=== PATIENT | female | born 1995 | race Caucasian/White ===

== ENCOUNTER 2017-03-12 18:43 | Outpatient (CLI) | payer OTHER ==
[2017-03-12] MEDS ORDERED: HYDROXYZINE PAMOATE 50 MG CAPSULE ONE (19:53)
[2017-03-12 20:04] LABS: AMORPHOUS SEDIMENT,URINE TRACE /HPF; APPEARANCE,URINE SLIGHTLY-CLOUDY; BILIRUBIN,URINE NEGATIVE (NEGATIVE); GLUCOSE, URINE NEGATIVE (NEGATIVE); KETONES,URINE 20 mg/dL (NEGATIVE); LEUKOCYTE ESTERASE,URINE NEGATIVE (NEGATIVE); NITRITE,URINE NEGATIVE (NEGATIVE); PROTEIN,URINE NEGATIVE (NEGATIVE); URINE SPECIFIC GRAVITY 1.004; UROBILINOGEN,URINE NEGATIVE mg/dL (<2.0)
[2017-03-12 20:15] LABS: URINE BARBITURATES SCREEN NEGATIVE; URINE METHADONE SCREEN NEGATIVE; URINE OPIATES LOW NEGATIVE; URINE PHENCYCLIDINE SCREEN NEGATIVE
[2017-03-12] MEDS ORDERED: HYDROXYZINE PAMOATE 50 MG CAPSULE PO ONE (20:15)
--- NOTE | 2017-03-12 20:53 | RADIOLOGY REPORT (SQ) ---
EXAM DESCRIPTION: U/S OB LIMITED COMPLETED DATE/TIME: 03/12/2017 8:41 pm REASON FOR STUDY: cervical length for contractions COMPARISON: None. TECHNIQUE: Limited transabdominal and endovaginal grayscale ultrasound for evaluation of specific re quested obstetrical parameters. LIMITATIONS: None. FINDINGS: CERVICAL LENGTH: 4.0 cm. Closed. RUTH: Not measured. FHR: 141 beats per minute. PRESENTATION: Cephalic. OTHER: No other significant findings. IMPRESSION: LIMITED OBSTETRICAL ULTRASOUND WITH MEASURED PARAMETERS DELINEATED ABOVE. Trimester of : Third trimester - 28 weeks to delivery. TECHNICAL DOCUMENTATION: JOB ID: [id number] [employer]- All Rights Reserved
--- NOTE | 2017-03-12 21:07 | Non Stress Test Report ---
Non Stress Test Datetime Report Generated by CPN: 03/12/2017 21:06 DEMOGRAPHIC Test Number: 1 EGA NST: 33.0 INDICATION Indication for Study: Decreased Movement; Ordered by Provider MONITORING Monitor Explained: Monitor Explained; Test Explained; Patient Verbalized Understanding Time on Monitor: 03/12/2017 19:11 Time off Monitor: 03/12/2017 20:53 NST Duration: 102 NST INTERVENTIONS NST Interventions: PO Hydration; Reposition Patient Physician Notified NST: Randall BABY A: [id number] BABY A Movement : Present Contraction Frequency : 4 FHR Baseline : 140 Accelerations : 15X15 Decelerations : None Variability : Moderate 6-25bpm NST Review: Meets Criteria for Reactive NST NST Review and Verified By : ELIGIO MIMS Results: Reactive NST REPORT Report Trigger: Send Report
== END 2017-03-12 21:00 | disposition home or self-care (01) ==
LOC: LC 18:43
PROVIDERS: ATTEND Obstetrics & Gynecology
PROC: 4A1HXCZ Monitoring of Products of Conception, Cardiac Rate, External Approach (ICD-10-PCS; principal; 2017-03-12)
DX: O36.8130 Decreased fetal movements, third trimester, not applicable or unspecified (principal); Z3A.33 33 weeks gestation of pregnancy
CPT/HCPCS: 59025; 76815; 80307; 81001

== ENCOUNTER 2017-03-14 17:56 | Outpatient (CLI) | payer OTHER ==
[2017-03-14 18:47] LABS: APPEARANCE,URINE SLIGHTLY-CLOUDY; BILIRUBIN,URINE NEGATIVE (NEGATIVE); GLUCOSE, URINE NEGATIVE (NEGATIVE); KETONES,URINE 20 mg/dL (NEGATIVE); LEUKOCYTE ESTERASE,URINE TRACE (NEGATIVE); NITRITE,URINE NEGATIVE (NEGATIVE); PROTEIN,URINE NEGATIVE (NEGATIVE); URINE SPECIFIC GRAVITY 1.003; UROBILINOGEN,URINE NEGATIVE mg/dL (<2.0)
[2017-03-14 19:03] LABS: URINE BARBITURATES SCREEN NEGATIVE; URINE METHADONE SCREEN NEGATIVE; URINE OPIATES LOW NEGATIVE; URINE PHENCYCLIDINE SCREEN NEGATIVE
[2017-03-14] MEDS ORDERED: ONDANSETRON 4 MG TAB.RAPDIS PO ONE (19:27)
[2017-03-14] MEDS ORDERED: ONDANSETRON 4 MG TAB.RAPDIS ONE (19:30)
--- NOTE | 2017-03-14 19:35 | Non Stress Test Report ---
Non Stress Test Datetime Report Generated by CPN: 03/14/2017 19:35 DEMOGRAPHIC EGA NST: 33.2 INDICATION Indication for Study: Other Indication for Study (NST) Other: labor check MONITORING Monitor Explained: Monitor Explained; Test Explained; Patient Verbalized Understanding Time on Monitor: 03/14/2017 18:17 Time off Monitor: 03/14/2017 19:24 NST Duration: 67 NST INTERVENTIONS NST Interventions: PO Hydration; Reposition Patient Physician Notified NST: Dr Ventura BABY A: [id number] BABY A Movement : Present Contraction Frequency : 1-5 FHR Baseline : 150 Accelerations : 15X15 Decelerations : None Variability : Moderate 6-25bpm NST Review: Meets Criteria for Reactive NST NST Review and Verified By : Derick Pinon RN NST Results: Reactive NST REPORT Report Trigger: Send Report
== END 2017-03-14 19:31 | disposition home or self-care (01) ==
LOC: LC 17:56
PROVIDERS: ATTEND Obstetrics & Gynecology
PROC: 4A1HXCZ Monitoring of Products of Conception, Cardiac Rate, External Approach (ICD-10-PCS; principal; 2017-03-14)
DX: O47.03 False labor before 37 completed weeks of gestation, third trimester (principal); Z3A.33 33 weeks gestation of pregnancy
CPT/HCPCS: 59025; 81001; 80307; S0119

== ENCOUNTER 2017-04-21 18:40 | Outpatient (CLI) | payer OTHER ==
[2017-04-21 19:27] LABS: APPEARANCE,URINE SLIGHTLY-CLOUDY; BILIRUBIN,URINE NEGATIVE (NEGATIVE); GLUCOSE, URINE NEGATIVE (NEGATIVE); KETONES,URINE 20 mg/dL (NEGATIVE); LEUKOCYTE ESTERASE,URINE TRACE (NEGATIVE); NITRITE,URINE NEGATIVE (NEGATIVE); PROTEIN,URINE NEGATIVE (NEGATIVE); URINE SPECIFIC GRAVITY 1.012; UROBILINOGEN,URINE NEGATIVE mg/dL (<2.0)
[2017-04-21 19:50] LABS: URINE BARBITURATES SCREEN NEGATIVE; URINE METHADONE SCREEN NEGATIVE; URINE OPIATES LOW NEGATIVE; URINE PHENCYCLIDINE SCREEN NEGATIVE
--- NOTE | 2017-04-30 17:13 | Non Stress Test Report ---
Non Stress Test Datetime Report Generated by CPN: 04/30/2017 17:13 DEMOGRAPHIC EGA NST: 38.5 INDICATION Indication for Study: Ordered by Provider Indication for Study (NST) Other: LC URINE RESULTS Urine Protein, NST: Negative Urine Ketones - NST: Positive Urine Glucose - NST: Negative Urine Blood - NST: Negative MONITORING Monitor Explained: Monitor Explained; Test Explained; Patient Verbalized Understanding Time on Monitor: 04/21/2017 18:57 Time off Monitor: 04/21/2017 20:30 NST Duration: 93 NST INTERVENTIONS NST Interventions: PO Hydration; Reposition Patient Physician Notified NST: Dr. Ventura BABY A: [id number] BABY A Movement : Present Contraction Frequency : Irregular FHR Baseline : 145 Accelerations : 15X15 Decelerations : None Variability : Moderate 6-25bpm NST Review: Meets Criteria for Reactive NST NST Review and Verified By : Bright Mercado RN NST Results: Reactive NST REPORT Report Trigger: Send Report (Annotations: Data stored by N on behalf of user)
== END 2017-04-21 20:40 | disposition home or self-care (01) ==
LOC: LC 18:40
PROVIDERS: ATTEND Obstetrics & Gynecology
PROC: 4A1HXCZ Monitoring of Products of Conception, Cardiac Rate, External Approach (ICD-10-PCS; principal; 2017-04-21)
DX: O47.1 False labor at or after 37 completed weeks of gestation (principal); Z3A.38 38 weeks gestation of pregnancy
CPT/HCPCS: 59025; 80307; 81005

== ENCOUNTER 2017-04-30 18:17 | Inpatient (IN) | payer OTHER ==
[2017-04-30] MEDS ORDERED: RINGERS SOLUTION,LACTATED 300 ML IV ONE (18:26)
[2017-04-30] MEDS ORDERED: OXYTOCIN/NORMAL SALINE 1,000 ML IV PRN (18:26)
[2017-04-30] MEDS ORDERED: DINOPROSTONE 10 MG VAGINAL INSERT.SR PV PRN (18:26)
[2017-04-30 18:54] LABS: APPEARANCE,URINE SLIGHTLY-CLOUDY; BILIRUBIN,URINE NEGATIVE (NEGATIVE); GLUCOSE, URINE NEGATIVE (NEGATIVE); KETONES,URINE NEGATIVE (NEGATIVE); LEUKOCYTE ESTERASE,URINE NEGATIVE (NEGATIVE); NITRITE,URINE NEGATIVE (NEGATIVE); PROTEIN,URINE NEGATIVE (NEGATIVE); URINE SPECIFIC GRAVITY 1.005; UROBILINOGEN,URINE NEGATIVE mg/dL (<2.0)
[2017-04-30 19:04] LABS: ABSOLUTE EOSINOPHILS # (AUTO) 0.1 10^3/uL (0.0-0.6); ABSOLUTE LYMPHOCYTES (AUTO) 2.9 10^3/uL (0.5-4.7); ABSOLUTE MONOCYTES (AUTO) 0.9 10^3/uL (0.1-1.4); ABSOLUTE NEUT (AUTO) 7.2 10^3/uL (1.7-8.2); BASOPHILS % (AUTO) 0.2 % (0-2); EOSINOPHILS % (AUTO) 0.8 % (0-6); HEMATOCRIT 30.6 % (36.0-47.0); HEMOGLOBIN 10.4 g/dL (12.0-15.5); HGB HCT DIFFERENCE 0.6; LYMPHOCYTES % (AUTO) 25.9 % (13-45); MEAN CORPUSCULAR HEMOGLOBIN 28.5 pg (27.0-33.4); MEAN CORPUSCULAR HGB CONC 33.9 g/dL (32.0-36.0); MEAN CORPUSCULAR VOLUME 84 fl (80-97); MONOCYTES % (AUTO) 8.4 % (3-13); RED BLOOD COUNT 3.64 10^6/uL (3.72-5.28); RED CELL DISTRIBUTION WIDTH 12.9 % (11.5-14.0); SEGMENTED NEUTROPHILS % (AUTO) 64.7 % (42-78); WHITE BLOOD COUNT 11.1 10^3/uL (4.0-10.5)
[2017-04-30 19:15] LABS: URINE BARBITURATES SCREEN NEGATIVE; URINE METHADONE SCREEN NEGATIVE; URINE OPIATES LOW NEGATIVE; URINE PHENCYCLIDINE SCREEN NEGATIVE
[2017-04-30] MEDS ORDERED: DINOPROSTONE 10 MG VAGINAL INSERT.SR ONE (19:46)
[2017-04-30] MEDS: RINGERS SOLUTION,LACTATED 1,000 ML IV PRN (19:55)
[2017-04-30] MEDS ORDERED: MAG HYDROX/AL HYDROX/SIMETH SUSP 30 ML UDCUP ONE (22:13)
[2017-04-30] MEDS ORDERED: DIPHENHYDRAMINE HCL 50 MG CAPSULE PO ONE (22:30)
[2017-04-30] MEDS ORDERED: MISOPROSTOL 0.2 MG TABLET PV ONE (23:11)
[2017-04-30 23:16] LABS: AMNISURE (ROM) POSITIVE (NEGATIVE)
[2017-04-30] MEDS ORDERED: MISOPROSTOL 0.1 MG TABLET ONE (23:28)
[2017-04-30] MEDS ORDERED: DIPHENHYDRAMINE HCL 25 MG CAPSULE ONE (23:39)
[2017-05-01] MEDS ORDERED: NALBUPHINE HCL INJ 10 MG/1 ML AMPULE INJ ONE (00:36)
[2017-05-01] MEDS ORDERED: PROMETHAZINE HCL INJ 25 MG/1 ML VIAL IV ONE (00:36)
[2017-05-01] MEDS ORDERED: NALBUPHINE HCL INJ 10 MG/1 ML AMPULE ONE (00:43)
[2017-05-01] MEDS ORDERED: PROMETHAZINE HCL INJ 25 MG/1 ML VIAL ONE (00:43)
[2017-05-01] MEDS: RINGERS SOLUTION,LACTATED 1,000 ML IV PRN ×2 (03:08→03:45)
[2017-05-01] MEDS ORDERED: EPHEDRINE SULFATE INJ 50 MG/1 ML AMPULE ONE (03:21)
[2017-05-01] MEDS ORDERED: FENTANYL/BUPIVACAINE/NS/PF 200 MCG/100 ML RTUINJ EPI ONE (03:22)
[2017-05-01] MEDS ORDERED: BUPIVACAINE HCL 0.25 % INJ/PF (2.5 MG/1 ML) 30 ML VIAL ONE (03:22)
[2017-05-01] MEDS ORDERED: LIDOCAINE 1% INJ-PF (10 MG/ML) 30 ML SDV ONE (05:52)
[2017-05-01] MEDS ORDERED: MISOPROSTOL 0.2 MG TABLET ONE (05:52)
[2017-05-01] MEDS ORDERED: OXYTOCIN/NORMAL SALINE 20 UNIT/1,000 ML RTUINJ ONE (05:53)
[2017-05-01] MEDS ORDERED: DIBUCAINE 1% OINTMENT 28 GM TP PRN (06:30)
[2017-05-01] MEDS ORDERED: OXYTOCIN/NORMAL SALINE 1,000 ML IV PRN (06:30)
[2017-05-01] MEDS ORDERED: DIPH/PERTUSS(ACELL)/TETANUS VAC/PF 0.5 ML SYR (>=10YO) IM PRN (06:30)
[2017-05-01] MEDS ORDERED: MEASLES,MUMPS&RUBELLA VACC/PF 0.5 ML VIAL SUBCUT PRN (06:30)
[2017-05-01] MEDS ORDERED: BENZOCAINE/MENTHOL AEROSOL SPRAY 56 ML TOP PRN (06:30)
[2017-05-01] MEDS ORDERED: ACETAMINOPHEN WITH CODEINE #3 TABLET PO PRN ×2 (06:30)
[2017-05-01] MEDS ORDERED: ZOLPIDEM TARTRATE 5 MG TABLET PO PRN (06:30)
[2017-05-01] MEDS ORDERED: IBUPROFEN 800 MG TABLET ONE (06:55)
[2017-05-01] MEDS: IBUPROFEN 800 MG TABLET PO SCH ×2 (06:55→21:36)
[2017-05-01] MEDS ORDERED: AMPICILLIN SOD/SULBACTAM 3 GM VIAL IV SCH ×2 (07:15→12:00)
[2017-05-01] MEDS ORDERED: AMPICILLIN SOD/SULBACTAM 3 GM VIAL ONE (07:19)
--- NOTE | 2017-05-01 09:51 | Admission Physical ---
Datetime Report Generated by CPN: 05/01/2017 09:51 CURRENT ADMISSION Hx Assessment: The History has been Reviewed and is Current Chief Complaint: Scheduled Induction of Labor Chief Complaint Other: known dysrhythmia Admit Plan: Initiate Labor Induction Protocol ALLERGIES Medication Allergies: No Medication Allergies: No Known Allergies (04/21/2017) Medication Allergies: No Known Allergies (03/14/2017) Medication Allergies: No Known Allergies (03/12/2017) Latex: Latex Allergies OBSTETRICAL HISTORY EDC: 04/30/2017 00:00 : 1 Para: 0 Term: 0 : 0 SAB: 0 IAB: 0 Ectopic: 0 Livin Cesareans: 0 VBACs: 0 Multiple Births: 0 Gestational Diabetes: No Rh Sensitization: No Incompetent Cervix: No TARYN: No Infertility: No ART Treatment: No Uterine Anomaly: No IUGR: No Hx Previous C/S: No Macrosomia: No Hx Loss/Stillborn: No PIH: No Hx : No Placenta Previa/Abruption: No Depression/PP Depression: No PTL/PROM: No Post Hemorrhage: No Current Procedures: Ultrasound Obstetrical History Comments: G1: currrent SEE RECORDS Alcohol: No Marijuana : No Cocaine: No Other Illicit Drugs: No Cigarettes: Never Smoker. [id number] MEDICAL HISTORY Diabetes: No Blood Transfusion: No Pulmonary Disease (Asthma, TB): No Breast Disease: No Hypertension: No Precision Lathe Operator Surgery: Yes Heart Disease: No Hosp/Surgery: Yes Autoimmune Disorder: No Anesthetic Complications: No Kidney Disease: No Abnormal Pap Smear: No Neuro/Epilepsy: No Psychiatric Disorders: No Other Medical Diseases: No Hepatitis/Liver Disease: No Significant Family History: No Varicosities/Phlebitis: No Trauma/Violence : No Thyroid Dysfunction: No Medical History Comments: Stage 1 ovarian cancer Right ovary removed 2012 INFECTIOUS HISTORY Gonorrhea: No Genital Herpes: No Chlamydia: No Tuberculosis: No Syphilis: No Hepatitis: No HIV/AIDS Exposure: No Rash or Viral Illness: No HPV: No PHYSICAL EXAM General: Normal HEENT: Normal Neurologic: Normal Thyroid: Normal Heart: Normal Lungs: Normal Breast: Normal Back: Normal Abdomen: Normal Genitourinary Exam: Normal Extremities: Normal DTRs: Normal Pelvic Type: Adequate Physical Exam Comments: pt with srom of clear fluid after cervidil was placed and it washed out gbs neg efw 8 pounds 10 oz FETUS A EGA: 40.0 Monitoring: External US FHR Category: Category I Admit Comment: cytotec for cervical ripening then pitocin PLANS FOR LABOR AND DELIVERY Pain Management: Epidural Feeding Preference: Breast Benefit of Breast Feed Discussed: Yes Circumcision: Yes INFORMED CONSENT Signature: with User ID: [email or web address]
[2017-05-01] MEDS: PRENATAL VITAMIN W-O CA NO5/FE FUMARATE/FA CAPSULE PO SCH (10:22)
[2017-05-01] MEDS: DOCUSATE SODIUM 100 MG CAPSULE PO SCH ×2 (10:23→18:28)
[2017-05-01] MEDS: FERROUS SULFATE 325 MG TABLET PO SCH ×2 (10:23→18:29)
[2017-05-01] MEDS: SENNOSIDES/DOCUSATE 8.6-50 MG 1 EACH TABLET PO SCH (10:23)
[2017-05-01] MEDS ORDERED: AMPICILLIN SODIUM/SULBACTAM NA 3 GM in NORMAL SALINE 100 ML IV ONE (19:00)
[2017-05-01] MEDS: AMPICILLIN SODIUM/SULBACTAM NA 3 GM in NORMAL SALINE 100 ML IV SCH (23:56)
[2017-05-02] MEDS: AMPICILLIN SODIUM/SULBACTAM NA 3 GM in NORMAL SALINE 100 ML IV SCH ×2 (06:18→13:00)
[2017-05-02] MEDS: IBUPROFEN 800 MG TABLET PO SCH ×3 (06:20→21:10)
[2017-05-02 07:55] LABS: HEMOGLOBIN 9.1 g/dL (12.0-15.5); HGB HCT DIFFERENCE 0.3; MEAN CORPUSCULAR HEMOGLOBIN 28.2 pg (27.0-33.4); MEAN CORPUSCULAR HGB CONC 33.8 g/dL (32.0-36.0); MEAN CORPUSCULAR VOLUME 84 fl (80-97); RED BLOOD COUNT 3.24 10^6/uL (3.72-5.28); WHITE BLOOD COUNT 12.4 10^3/uL (4.0-10.5)
[2017-05-02] MEDS: PRENATAL VITAMIN W-O CA NO5/FE FUMARATE/FA CAPSULE PO SCH (09:52)
[2017-05-02] MEDS: DOCUSATE SODIUM 100 MG CAPSULE PO SCH ×2 (09:52→17:39)
[2017-05-02] MEDS: FERROUS SULFATE 325 MG TABLET PO SCH ×2 (09:52→17:40)
[2017-05-02] MEDS: SENNOSIDES/DOCUSATE 8.6-50 MG 1 EACH TABLET PO SCH (09:52)
--- NOTE | 2017-05-02 09:53 | PDOC PROGRESS REPORT ---
Subjective-OB Subjective: Post Delivery Day: 1 22 year old. Denies any needs at this time, states lochia is stable, pain well controlled, voiding without difficulty. Physical Exam (OB) Vital Signs: Temp Pulse Resp BP Pulse Ox 98.5 F 93 15 109/67 98 05/02/17 08:22 05/02/17 08:22 05/02/17 08:22 05/02/17 08:22 05/02/17 08:22 Intake & Output 05/01/17 05/02/17 05/03/17 06:59 06:59 06:59 Intake Total 700 Balance 700 Weight 70.25 kg - Lochia Lochia Amount: Scant < 10 ml Lochia Color: Rubra/Red - Abdomen Description: Soft, Flat Hernia Present: No Fundal Description: Firm, Midline Describe if Not Midline: shifted to left of abdomen Fundal Height: 1/u - 2/u Objective-Diagnostic Laboratory: 05/02/17 07:27 05/02/17 07:27 WBC 12.4 H RBC 3.24 L Hgb 9.1 L Hct 27.0 L MCV 84 MCH 28.2 MCHC 33.8 RDW 13.0 Plt Count 234 Assessment and Plan(PN) - Assessment and Plan (1) Acute blood loss anemia Is this a current diagnosis for this admission?: YesPlan: ferrous sulfate increase dietary iron (2) Delivery normal Is this a current diagnosis for this admission?: YesPlan: routine pp care - Time Spent with Patient Time with patient: Less than 15 minutes Critical Time spent with patient: Less than 15 minutes Medications reviewed and adjusted accordingly: Yes - Disposition Anticipated Discharge: Home Within: within 24 hours
--- NOTE | 2017-05-02 11:12 | Delivery Summary ---
Del Sum A-C Datetime Report Generated by CPN: 05/02/2017 11:12 DELIVERY PERSONNEL DELIVERY PERSONNEL: [phone] DELIVERY PERSONNEL: [phone] DELIVERY PERSONNEL: [phone] DELIVERY PERSONNEL: [phone] Delivery Doctor:: Ashleigh Herrera MD Labor and Delivery Nurse:: Inocencia Kline RNcredit card associate Nurse:: Maricel Liu RN Nursery Nurse:: ELIGIO Araya/DEBBIE: Donna Staton ST MATERNAL INFORMATION Delivery Anesthesia: Epidural Medications After Delivery: Pitocin Bolus-Please Comment; Pitocin Drip 20 Units/1000ml NSS Meds After Delivery Comment: ns with pitocin 20 units/liter if bolus Estimated Blood Loss (ml): 200 Maternal Complications: Maternal Fever Provider Comments: Pt progressed to over second degree lac of vigorous male with apgars 8 and 9. Head delivered OA. Shoulders and body delivered easily. [employer]ER and OP bulb suctioned. Cord clamped and cut. Placenta spont and intact. Lac repaired. LABOR SUMMARY EDC: 04/30/2017 00:00 No. Babies in Womb: 1 Attempted: No Labor Anesthesia: Epidural LABOR INFORMATION Reason for Induction: Post Dates; Other Reason for Induction- Other: arrhythmia Onset of Labor: 05/01/2017 00:29 Complete Dilatation: 05/01/2017 05:48 Cervical Ripening Agents: Cervidil Cervical Ripening Agents: Cervidil Oxytocin: N/A Group B Beta Strep: negative Antibiotics # of Doses: 0 Steroids Given: None Reason Steroids Not Administered: Not Applicable MEMBRANES Membranes Rupture Method: Spontaneous Rupture of Membranes: 04/30/2017 22:41 Length of Rupture (hr): 7.45 Amniotic Fluid Color: Clear Amniotic Fluid Amount: Small Amniotic Fluid Odor: Normal STAGES OF LABOR Stage 1 hr: 5 Stage 1 min: 19 Stage 2 hr: 0 Stage 2 min: 20 Stage 3 hr: 0 Stage 3 min: 4 Total Time in Labor hr: 5 Total Time in Labor min: 43 VAGINAL DELIVERY Episiotomy: None Laceration Extension: Second Degree Laceration Type: Perineal Laceration Repair: Yes Laceration Repair Note: with 2-0 chromic Sponge Count Correct: Yes Sharps Count Correct: Yes CSECTION DELIVERY Primary Indication: N/A Secondary Indication: N/A CSection Incidence: N/A Labor: N/A Elective: N/A CSection Incision: N/A BABY A INFORMATION Infant Delivery Date/Time: 05/01/2017 06:08 Method of Delivery: Vaginal Born in Route : No : N/A Forceps: N/A Vacuum Extraction: N/A Shoulder Dystocia : No PRESENTATION/POSITION BABY A Presentation: Cephalic Presentation: Cephalic Presentation: Cephalic Presentation: Cephalic Cephalic Presentation: Vertex Vertex Position: Right Occipital Anterior Breech Presentation: N/A PLACENTA INFORMATION BABY A Placenta Delivery Time : 05/01/2017 06:12 Placenta Method of Delivery: Spontaneous Placenta Status: Delivered SCORES BABY A Heart Rate 1 min: >100 bpm Resp Effort 1 min: Good Cry Reflex Irritability 1 min: Cough or Sneeze or Pulls Away Muscle Tone 1 min: Active Motion Color 1 min: Blue/Pale Resuscitation Effort 1 min: Tactile Stimulation SCORE 1 MIN: 8 Heart Rate 5 min: >100 bpm Resp Effort 5 min: Good Cry Reflex Irritability 5 min: Cough or Sneeze or Pulls Away Muscle Tone 5 min: Active Motion Color 5 min: Body Lyons Switch, Extremities Blue Resuscitation Effort 5 min: Tactile Stimulation SCORE 5 MIN: 9 INFORMATION BABY A Gestational Age at Delivery: 40.1 Gestational Status: Full Term- 39- 40.6 Weeks Infant Outcome : Liveborn Condition : Stable Sex: Male IDENTIFICATION BABY A Infant Verification Date/Time: 05/01/2017 06:21 ID Band Number: [id number] Mother's Name Verified: Yes RN Verifying : SVenita Scott, RN _ R. Brasher, RN WEIGHT/LENGTH BABY A Birthweight (gm): 4010 Infant Weight (lb): 8 Weight (oz): 13 Length (in): 19.75 Infant Length (cm): 50.17 CORD INFORMATION BABY A No. Cord Vessels: 3 Nuchal Cord : N/A Cord Blood Taken: Yes-For Storage (Mom's Blood type +) Suction: Mouth; Nose ASSESSMENT BABY A Infant Complications: Multiple Variable Decels Complications- Other: arrhythmia on monitors during labor Skin to Skin: Yes BABY B INFORMATION : N/A SIGNATURES Signature: with User ID: [email or web address]
[2017-05-03] MEDS: IBUPROFEN 800 MG TABLET PO SCH ×2 (05:15→14:51)
[2017-05-03 08:12] VITALS: BP 121/71
[2017-05-03] MEDS: DOCUSATE SODIUM 100 MG CAPSULE PO SCH ×2 (10:02→18:41)
[2017-05-03] MEDS: SENNOSIDES/DOCUSATE 8.6-50 MG 1 EACH TABLET PO SCH (10:02)
[2017-05-03] MEDS: PRENATAL VITAMIN W-O CA NO5/FE FUMARATE/FA CAPSULE PO SCH (10:02)
[2017-05-03] MEDS: FERROUS SULFATE 325 MG TABLET PO SCH ×2 (10:04→18:41)
--- NOTE | 2017-05-03 12:09 | PDOC DISCHARGE SUMMARY ---
Final Diagnosis Discharge Date: 05/03/17 - Final Diagnosis (1) Acute blood loss anemia Is this a current diagnosis for this admission?: Yes (2) Delivery normal Is this a current diagnosis for this admission?: Yes Discharge Data - Discharge Medication Home Medications: Pnv #116/Iron Fumarate/FA/Dha [Expecta Combo Pack] 1 tab PO DAILY 03/12 Docusate Sodium [Colace 100 mg Capsule] 100 mg PO BID #60 capsule 05/03/17 Ferrous Sulfate [Feosol 325 mg Tablet] 325 mg PO BID #60 tablet 05/03/17 Ibuprofen [Motrin 800 mg Tablet] 800 mg PO Q8HP PRN #60 tablet 05/03/17 Reason(s) for Admission: Induction of Labor Procedures: NST, Ultrasound Intrapartum Procedure(s): Spontaneous Vaginal Delivery Complication(s): Laceration-Perineal Laceration-Degree: 2nd - Diagnosis Test Laboratory: Temp Pulse Resp BP Pulse Ox 98.2 F 83 18 121/71 100 05/03/17 07:37 05/03/17 07:37 05/03/17 07:37 05/03/17 07:37 05/03/17 07:37 04/30/17 04/30/17 05/02/17 18:35 18:40 07:27 RBC 3.64 L 3.24 L Hgb 10.4 L 9.1 L Hct 30.6 L 27.0 L Urine Opiates Screen NEGATIVE - Discharge information/Instructions Discharge Activity: Activity As Tolerated, No Lifting Over 10 Pounds, No Lifting /Push/Pulling, Pelvic Rest, Slowly Increase Activity, No tub bath Discharge Diet: As Tolerated, Regular Disposition: HOME, SELF-CARE Follow up with: [facility] in: 4, Weeks
== END 2017-05-03 19:30 | disposition home or self-care (01) | DRG 774 ==
LOC: LR 18:17 → 2S 05-01 09:49
PROVIDERS: ADMIT Specialist; ATTEND Specialist
PROC: 4A1HXCZ Monitoring of Products of Conception, Cardiac Rate, External Approach (ICD-10-PCS; 2017-04-30)
PROC: 10E0XZZ Delivery of Products of Conception, External Approach (ICD-10-PCS; principal; 2017-05-01)
PROC: 0KQM0ZZ Repair Perineum Muscle, Open Approach (ICD-10-PCS; 2017-05-01)
PROC: 3E0P7GC Introduction of Other Therapeutic Substance into Female Reproductive, Via Natural or Artificial Opening (ICD-10-PCS; 2017-05-01)
DX: O76 Abnormality in fetal heart rate and rhythm complicating labor and delivery (principal); O75.2 Pyrexia during labor, not elsewhere classified; D62 Acute posthemorrhagic anemia; O99.02 Anemia complicating childbirth; O70.1 Second degree perineal laceration during delivery; O48.0 Post-term pregnancy; Z91.040 Latex allergy status; Z85.43 Personal history of malignant neoplasm of ovary; Z90.721 Acquired absence of ovaries, unilateral; Z37.0 Single live birth
CPT/HCPCS: 36415; 80307; 81005; 84112; 85025; 85027; 86592; 86850; 86900; 86901; 88307; 94760; J0295; J2300; J2550; J2590; J3490